=== PATIENT | male | born 1965 | race Caucasian/White ===

== ENCOUNTER 2016-10-22 11:32 | Emergency (ER) | payer BC ==
[2016-10-22 11:55] VITALS: BP 154/82
--- NOTE | 2016-10-22 12:39 | UC ---
Minor Trauma HPI - HPI Summary HPI Summary: LAST NIGHT 9PM PT WAS WALKING DOWN THE STAIRS. HAD A COUGHING FIT (RECOVERING FROM RESP INECTION), TRIED TO SIT DOWN BUT HAS NO MEMORY OF SITTING DOWN. NEXT THING HE KNEW HE WAS ON THE GROUND AT THE BOTTOM OF THE STAIRS. HAS POOLE/ CONTUSION LEFT SIDE OF HEAD AND SWELLING/BRUISING TO LEFT FOOT. ALSO C/O PAIN RIGHT SIDE OF NECK. DENIES DIZZINESS, CP. - History of Current Complaint Chief Complaint: UC Stated Complaint: FALL INJURY Time Seen by Provider: 10/22/16 12:20 Hx Obtained From: Patient Onset/Duration: Sudden Onset Onset Of Pain: Immediate Severity Initially: Moderate Severity Currently: Moderate Pain Intensity: 5 Pain Scale Used: 0-10 Numeric Mechanism Of Injury: Fall From A Standing Position Aggravating Factor(s): Ambulation Alleviating Factor(s): Ice Associated Signs And Symptoms: Positive: Loss Of Consciousness - Allergies/Home Medications Allergies/Adverse Reactions: Allergies Allergy/AdvReac Type Severity Reaction Status Date / Time Hydrocodone Allergy See Comment Verified 10/22/16 11:57 Home Medications: Home Medications Pseudoephedrine-Guaifenesin [Mucinex D Maximum Strengt 120-1200 mg] 1 tab PO PRN 10/22/16 [History] Sertraline HCl [Zoloft] 150 mg PO DAILY 10/22/16 [History Confirmed 10/22/16] buPROPion TAB* [Wellbutrin TAB*] 10/22/16 [History] PMH/Surg Hx/FS Hx/Imm Hx Previously Healthy: Yes Endocrine History Of: Denies: Diabetes, Thyroid Disease Cardiovascular History Of: Denies: Cardiac Disorders, Hypertension Respiratory History Of: Denies: COPD, Asthma GI/ History Of: Denies: Ulcer - Surgical History Surgical History: Yes Surgery Procedure, Year, and Place: right knee x2 - Family History Known Family History: Positive: Cardiac Disease, Hypertension, Diabetes, Other - THYROID - Social History Alcohol Use: Occasionally Substance Use Type: None Smoking Status (MU): Former Smoker - Immunization History Most Recent Influenza Vaccination: 08/2016 Review of Systems Constitutional: Negative Respiratory: Cough Cardiovascular: Negative Gastrointestinal: Negative Musculoskeletal: Arthralgia, Decreased ROM, Edema Neurological: Headache All Other Systems Reviewed And Are Negative: Yes Physical Exam Triage Information Reviewed: Yes Appearance: Well-Appearing, No Pain Distress, Well-Nourished Vital Signs: Initial Vital Signs Temp 97.5 F 10/22/16 11:40 Pulse 94 10/22/16 11:40 Resp 16 10/22/16 11:40 BP 154/82 10/22/16 11:40 Pulse Ox 62 10/22/16 11:40 Vital Signs Reviewed: Yes Eyes: Positive: Conjunctiva Clear ENT: Positive: Hearing grossly normal, Pharynx normal, TMs normal Neck: Positive: Supple, No Lymphadenopathy, Other: - NO TENDERNESS OVER SPINOUS PROCESSES. TTP RIGHT TRAPEZIUS MUSCLE Respiratory Exam: Normal Cardiovascular Exam: Normal Abdomen Description: Positive: Soft Musculoskeletal: Positive: ROM Limited @ - LEFT FOOT TOES, Edema @ - LEFT FOOT, Other: - TTP LEFT 1ST MTP JOINT Neurological: Positive: Alert Psychological: Positive: Age Appropriate Behavior Skin: Positive: Other - BRUISING LEFT SCALP AND LEFT FOOT. Negative: rashes Diagnostics - Radiology CHEST XRAY Xray Interpretation: No Acute Changes Radiology Interpretation Completed By: Radiologist LEFT FOOT XRAY Xray Interpretation: No Acute Changes Radiology Interpretation Completed By: Radiologist No standard instances Xray Interpretation: No Acute Changes Radiology Interpretation Completed By: Radiologist - EKG Cardiac Rate: NL - 89 BPM Cardiac Rhythm: Sinus: Normal Ectopy: None ST Segment: Normal Minor Trauma Course/Dx - Differential Dx/Diagnosis Provider Diagnoses: 1. SYNCOPE. 2. HEAD INJURY/SCALR CONTUSION. 3. LEFT FOOT CONTUSION Discharge - Discharge Plan Condition: Stable Disposition: HOME Patient Education Materials: Syncope (ED), Head Injury (ED), Foot Contusion (ED ), Scalp Contusion in Adults (ED) Referrals: Vladimir Ugalde MD [Medical Doctor] - If Needed Additional Instructions: EKG UNREMARKABLE. CHEST XRAY, FOOT XRAY AND HEAD CT ALL UNREMARKABLE. UNCLEAR CAUSE OF SYNCOPAL EPISODE. KEEP YOUR FOLLOW-UP APPT WITH YOUR PCP TOMORROW. GO TO THE ER WITHOUT FAIL IF YOU DEVELOP RECURRENT SYMPTOMS, SHORTNESS OF BREATH, DIZZINESS, WORSENING HEADACHE OR ANY OTHER CONCERNING SYMPTOMS.
--- NOTE | 2016-10-22 13:15 | RAD ---
INDICATION: Syncope. COMPARISON: There are no prior studies available for comparison. TECHNIQUE: Contiguous axial sections of the brain were obtained from the skull base to the vertex without contrast. FINDINGS: The ventricles, cisterns and sulci are within normal limits. No significant focal abnormality or mass effect is seen. There is no evidence for hemorrhage. No significant focal osseous abnormality is seen. The visualized portion of the paranasal sinuses and mastoid air cells appear clear. IMPRESSION: NO EVIDENCE FOR ACUTE INTRACRANIAL ABNORMALITY.
--- NOTE | 2016-10-22 13:34 | RAD ---
INDICATION: Left foot injury. TECHNIQUE: 3 views of the left foot were obtained. FINDINGS: The bones are in normal alignment. No fracture is seen. Joint spaces appear maintained. IMPRESSION: NO EVIDENCE FOR FRACTURE.
--- NOTE | 2016-10-22 13:35 | RAD ---
INDICATION: Cough. COMPARISON: There are no prior studies available for comparison. TECHNIQUE: Dual-energy PA and lateral views of the chest were obtained. FINDINGS: The heart is within normal limits in size. Mediastinal and hilar contours appear within normal limits. The lungs are clear. No pleural effusion is present. IMPRESSION: NO EVIDENCE FOR ACTIVE CARDIOPULMONARY DISEASE.
== END 2016-10-22 13:51 | disposition home or self-care (01) ==
LOC: UCEAST 11:32
DX: R55 Syncope and collapse (principal); S00.03XA Contusion of scalp, initial encounter; S90.32XA Contusion of left foot, initial encounter; W10.9XXA Fall (on) (from) unspecified stairs and steps, initial encounter; Y93.9 Activity, unspecified; Y92.9 Unspecified place or not applicable; Z88.5 Allergy status to narcotic agent; Z87.891 Personal history of nicotine dependence
CPT/HCPCS: 70450; 71020; 93005; 99213; G0463

== ENCOUNTER 2018-08-14 08:55 | Emergency (ER) | payer BC ==
[2018-08-14 09:07] VITALS: BP 145/74
--- NOTE | 2018-08-14 09:59 | UC ---
Respiratory Complaint HPI - HPI Summary HPI Summary: Patient presents with an unremarkable past medical history. He presents with 6 days onset worsening fatigue, night sweats, fever, and nonproductive cough. He has been taking OTC cough and cold remedy medications with no improvement. He now presents for further evaluation and treatment. - History of Current Complaint Chief Complaint: UCGeneralIllness Stated Complaint: BODY ACHES, COUGH Time Seen by Provider: 08/14/18 09:40 Hx Obtained From: Patient Onset/Duration: Gradual Onset, Lasting Days Timing: Constant Severity Initially: Mild Severity Currently: Moderate Pain Intensity: 4 Character: Cough: Nonproductive Aggravating Factors: Deep Breaths, Recumbent Position Alleviating Factors: OTC Meds, Spontaneous Resolution Associated Signs And Symptoms: Positive: Fever, Chills, URI, Nasal Congestion - Risk Factors Pulmonary Embolism Risk Factors: Negative Cardiac Risk Factors: Negative Pseudomonas Risk Factors: Negative Tuberculosis Risk Factors: Negative - Allergies/Home Medications Allergies/Adverse Reactions: Allergies Allergy/AdvReac Type Severity Reaction Status Date / Time hydrocodone Allergy See Comment Verified 08/14/18 09:07 Home Medications: Home Medications Naproxen Sod/Diphenhydramine [Aleve PM 220-25 mg] 1 tab PO 08/14/18 [History] PMH/Surg Hx/FS Hx/Imm Hx Previously Healthy: Yes - Surgical History Surgical History: Yes Surgery Procedure, Year, and Place: right knee x2 - Family History Known Family History: Positive: Cardiac Disease, Hypertension, Diabetes, Other - THYROID - Social History Occupation: Employed Full-time Lives: Alone Alcohol Use: Rare Substance Use Type: None Smoking Status (MU): Current Some Day Smoker Type: Cigarettes - Immunization History Most Recent Influenza Vaccination: 08/2016 Review of Systems All Other Systems Reviewed And Are Negative: Yes Constitutional: Positive: Fever, Fatigue Skin: Positive: Negative Eyes: Positive: Negative ENT: Positive: Nasal Discharge, Sinus Congestion Respiratory: Positive: Cough Cardiovascular: Positive: Negative Gastrointestinal: Positive: Negative Genitourinary: Positive: Negative Motor: Positive: Negative Neurovascular: Positive: Negative Musculoskeletal: Positive: Negative Neurological: Positive: Negative Psychological: Positive: Negative Physical Exam Triage Information Reviewed: Yes Appearance: Ill-Appearing Vital Signs: Initial Vital Signs Temp 97.1 F 08/14/18 09:03 Pulse 100 08/14/18 09:03 Resp 18 08/14/18 09:03 BP 145/74 08/14/18 09:03 Pulse Ox 96 08/14/18 09:03 Vital Signs Reviewed: Yes Eye Exam: Normal ENT Exam: Normal Neck exam: Normal Neck: Positive: 1 Respiratory: Positive: Crackles, Rhonchi Cardiovascular Exam: Normal Musculoskeletal Exam: Normal Neurological Exam: Normal Psychological Exam: Normal Skin Exam: Normal UC Diagnostic Evaluation - Laboratory O2 Sat by Pulse Oximetry: 96 Respiratory Course/Dx - Course Course Of Treatment: Patient presents with 6 day onset fever, fatigue, persistent cough. VS revealpulse rate of 100, o2sat 96%, clinical findings are consistent with CAP. He will be treated with doxycycline 100 mg bid, x 10 days, albuterol HFA 2 inhalations q 4-6 hours as needed, and tessalon pearles 100 mg tid as needed. He was taken out of work for 2 more days and told to follow up with his doctor in 48 hours, and go to the ER if his symtpoms get worse. He verbalized understanding of and in agreement with the discharge plan. - Differential Dx/Diagnosis Differential Diagnosis/HQI/PQRI: Other - CAP Provider Diagnoses: CAP Discharge - Sign-Out/Discharge Documenting (check all that apply): Patient Departure All imaging exams completed and their final reports reviewed: No Studies - Discharge Plan Condition: Stable Disposition: HOME Prescriptions: Albuterol HFA INHALER* [Ventolin HFA Inhaler*] 1 - 2 puff INH Q4H PRN #1 mdi MDD 6 PRN Reason: Cough Benzonatate CAP* [Tessalon 100 MG CAP*] 100 mg PO TID PRN #14 cap MDD 3 PRN Reason: Cough DOXYcycline CAP(*) [DOXYcycline 100MG CAP(*)] 100 mg PO BID #20 cap Patient Education Materials: Bacterial Pneumonia (DC) Forms: *Work Release Referrals: Vladimir Ugalde MD [Primary Care Provider] - Additional Instructions: If you are not better in 3 days, follow up with your doctor, if you get worse go to the ER. - Billing Disposition and Condition Condition: STABLE Disposition: Home - Attestation Statements Scribe Documentation Reviewed: No Provider Attestation: Per institutional requirements, I have reviewed the chart, however, I was not consulted specifically or made aware of this patient by the midlevel provider. I did not personally evaluate, interact with , or disposition this patient.
== END 2018-08-14 10:05 | disposition home or self-care (01) ==
LOC: UCEAST 08:55
DX: J18.9 Pneumonia, unspecified organism (principal); F17.210 Nicotine dependence, cigarettes, uncomplicated; Z88.5 Allergy status to narcotic agent
CPT/HCPCS: 99212; G0463

== ENCOUNTER 2019-11-25 07:28 | Emergency (ER) | payer BC ==
[2019-11-25 07:45] VITALS: BP 138/87
--- NOTE | 2019-11-25 07:59 | UC ---
FLU HPI - HPI Summary HPI Summary: 54 yo male presents with flu-like symptoms. He tells me that for the last 3 days he has had sinus pain/pressure/congestion with yellow phlegm, sore throat, swollen glands, body aches, and fatigue. He has been taking ibuprofen with little relief. He is eating, drinking, and tolerating po well - but does hurt to swallow. Denies fever, chills, sob, rash, abdominal pain, n/v - History of Current Complaint Chief Complaint: UCGeneralIllness Stated Complaint: RESP COMPLAINT Time Seen by Provider: 11/25/19 07:58 Hx Obtained From: Patient Onset/Duration: Gradual Onset Severity Currently: Moderate Severity Initially: Mild Pain Intensity: 4 Pain Scale Used: 0-10 Numeric - Allergy/Home Medications Allergies/Adverse Reactions: Allergies Allergy/AdvReac Type Severity Reaction Status Date / Time hydrocodone AdvReac See Comment Verified 11/25/19 07:35 Home Medications: Home Medications Amoxicillin/Clavulanate TAB* [Augmentin TAB 875*] 875 mg PO BID #14 tab [Rx] Sertraline* [Zoloft*] 150 mg PO DAILY 11/25/19 [History Confirmed 11/25/19] buPROPion SR TAB* [Wellbutrin SR TAB*] 100 mg PO DAILY 11/25/19 [History Confirmed 11/25/19] PMH/Surg Hx/FS Hx/Imm Hx Psychological History: Anxiety, Depression - Surgical History Surgical History: Yes Surgery Procedure, Year, and Place: right knee x2 - Family History Known Family History: Positive: Cardiac Disease, Hypertension, Diabetes, Other - THYROID - Social History Occupation: Employed Full-time Lives: With Family Alcohol Use: None Substance Use Type: None Smoking Status (MU): Current Some Day Smoker Type: Cigarettes - Immunization History Most Recent Influenza Vaccination: 08/2016 Review of Systems All Other Systems Reviewed And Are Negative: No Constitutional: Positive: Fatigue, Other - Body aches Skin: Positive: Negative Eyes: Positive: Negative ENT: Positive: Sore Throat, Nasal Discharge, Sinus Congestion, Sinus Pain/ Tenderness Respiratory: Positive: Negative Cardiovascular: Positive: Negative Gastrointestinal: Positive: Negative Genitourinary: Positive: Negative Neurological/Mental Status: Positive: Negative Psychological: Positive: Negative Physical Exam - Summary Physical Exam Summary: GENERAL: NAD. WDWN. No pain distress. SKIN: No rashes, sores, lesions, or open wounds. HEENT: Head: AT/NC Eyes: EOM intact. Conjunctiva clear without inflammation or discharge. Ears: Hearing grossly normal. TMs intact, no bulging, erythema, or edema. Nose: Nasal mucosa mildly swollen and erythematous with yellow/ clear discharge. TTP maxillary and frontal sinus. Positive post nasal drip Throat: Posterior oropharynx moderate erythema and 3+ tonsillar enlargement. No exudates. Uvula midline. No hoarse voice or muffled voice. NECK: Supple. Moderate anterior cervical LAD with ttp. CHEST: CTAB. No r/r/w. No accessory muscle use. Breathing comfortably and in no distress. CV: RRR. Pulses intact. NEURO: Alert. PSYCH: Age appropriate behavior. Triage Information Reviewed: Yes Vital Signs: Initial Vital Signs Temp 97.6 F 11/25/19 07:41 Pulse 99 11/25/19 07:41 Resp 18 11/25/19 07:41 BP 138/87 11/25/19 07:41 Pulse Ox 98 11/25/19 07:41 Laboratory Tests 11/25/19 11/25/19 08:12 08:25 Influenza A (Rapid) Negative Influenza B (Rapid) Negative Group A Strep Rapid Negative Vital Signs Reviewed: Yes Flu Course/Dx - Course Course Of Treatment: POC strep and flu negative. Throat culture sent to lab. Given exam and appearance of throat with LAD - will start him on augmentin at this time. Advised that if he develops difficulty handling his secretions, increased pain, develops a fever, or has difficulty breathing to go to the ED immediately. Pt voiced understanding and agrees with the plan. - Differential Dx/Diagnosis Provider Diagnosis: Pharyngitis Discharge ED - Sign-Out/Discharge Documenting (check all that apply): Patient Departure All imaging exams completed and their final reports reviewed: No Studies - Discharge Plan Condition: Stable Disposition: HOME Prescriptions: Amoxicillin/Clavulanate TAB* [Augmentin TAB 875*] 875 mg PO BID #14 tab Patient Education Materials: Pharyngitis (ED) Referrals: Vladimir Ugalde MD [Primary Care Provider] - Additional Instructions: YOUR STREP AND FLU TESTS WERE NEGATIVE TODAY, BUT YOUR EXAM IS CONCERNING FOR A BACTERIAL CAUSE OF YOUR SORE THROAT -- THEREFORE ANTIBIOTICS ARE BEING PRESCRIBED TODAY If you develop a fever, shortness of breath, chest pain, new or worsening symptoms - please call your PCP or go to the ED immediately. Your blood pressure was mildly elevated at todays visit. Please see your primary provider within 4 weeks for recheck and re-evaluation. - Billing Disposition and Condition Condition: STABLE Disposition: Home
[2019-11-25 08:24] LABS: Influenza A Molecular Negative (Negative); Influenza B Molecular Negative (Negative)
== END 2019-11-25 08:46 | disposition home or self-care (01) ==
LOC: UCEAST 07:28
DX: J02.9 Acute pharyngitis, unspecified (principal); R09.89 Other specified symptoms and signs involving the circulatory and respiratory systems; R09.81 Nasal congestion; F17.210 Nicotine dependence, cigarettes, uncomplicated; F41.9 Anxiety disorder, unspecified; F32.9 Major depressive disorder, single episode, unspecified; Z79.899 Other long term (current) drug therapy; Z88.5 Allergy status to narcotic agent
CPT/HCPCS: 87070; 87651; 99212; G0463